=== PATIENT | female | born 1980 | race Asian ===

== ENCOUNTER 2018-09-10 09:38 | Emergency (ER) | payer MEDICAID, OTHER ==
--- NOTE | 2018-09-10 11:36 | ED Physician Documentation ---
PD HPI BACK PAIN - Stated complaint Stated Complaint: BACK PX - Chief complaint Chief Complaint: Back Pain - History obtained from History obtained from: Patient - History of Present Illness Timing - onset: How many days ago (3) Timing - duration: Weeks (2) Timing - details: Gradual onset, Still present Pain level max: 8 Pain level now: 8 Location: Lower Quality: Pain, Sharp. No: Similar to prior episodes Associated symptoms: No: Fever, Weakness, Numbness, Incontinent of urine, Hematuria, Incontinent of stool Improves with: Nothing Worsened by: Movement Contributing factors: No: Trauma Similar symptoms before: Has not had sx before Recently seen: Not recently seen - Additional information Additional information: 38-year-old female with no past medical or surgical history here with complaint of low back pain the past 2 weeks which had gotten worse the past 3 days. States is worse when she sits, walk, bend or turn. Patient denies any trauma, travel or recent injuries nor recent illness. Review of Systems Ten Systems: 10 systems reviewed and negative Constitutional: denies: Fever, Myalgias Cardiac: denies: Chest pain / pressure Respiratory: denies: Dyspnea GI: reports: Constipation. denies: Abdominal Pain, Nausea, Vomiting, Diarrhea : denies: Dysuria, Frequency, Hesitancy, Hematuria Musculoskeletal: reports: Back pain, Pain with weight bearing. denies: Neck pain, Extremity pain Neurologic: denies: Generalized weakness, Focal weakness, Numbness PD PAST MEDICAL HISTORY - Past Medical History Past Medical History: Yes Other Past Medical History: neurofibromatosis - Past Surgical History Past Surgical History: Yes - Present Medications Home Medications: Ambulatory Orders Medication Instructions Recorded Confirmed Cyclobenzaprine [Flexeril] 10 mg PO TID PRN #20 tablet 09/10/18 Ibuprofen [Motrin] 800 mg PO Q8H PRN #30 tablet 09/10/18 RX: Ibuprofen 09/10/18 - Allergies Allergies/Adverse Reactions: Allergies Allergy/AdvReac Type Severity Reaction Status Date / Time No Known Drug Allergies Allergy Verified 09/10/18 09:47 - Social History Does the pt smoke?: No Smoking Status: Never smoker Does the pt drink ETOH?: Yes Does the pt have substance abuse?: No - Immunizations Immunizations are current?: Yes - POLST Patient has POLST: No PD ED PE NORMAL - Vitals Vital signs reviewed: Yes - General General: Alert and oriented X 3, No acute distress, Well developed/nourished - HEENT HEENT: Moist mucous membranes - Neck Neck: Supple, no meningeal sign, No bony TTP - Cardiac Cardiac: RRR, No murmur - Respiratory Respiratory: No respiratory distress, Clear bilaterally - Abdomen Abdomen: Normal bowel sounds, Soft, Non tender, Non distended - Back Back: No CVA TTP, No spinal TTP - Derm Derm: Normal color, Warm and dry - Extremities Extremities: No deformity, No tenderness to palpate, Normal ROM s pain, No edema, No calf tenderness / cord, Other (Mild tenderness of her low back with leg lifting. Patient ambulatory with steady gait.) - Neuro Neuro: Alert and oriented X 3, No motor deficit, No sensory deficit, Normal speech - Psych Psych: Normal mood, Normal affect Results - Vitals Vitals: Vital Signs - 24 hr 09/10/18 09/10/18 09:44 13:28 Temperature 36.1 C L 36.9 C Heart Rate 88 81 Respiratory 16 18 Rate Blood Pressure 119/67 127/62 O2 Saturation 100 100 Oxygen O2 Source Room air - Labs Labs: Laboratory Tests 09/10/18 11:15 Urine Color YELLOW Urine Clarity CLEAR Urine pH 6.5 Ur Specific [place] 1.020 Urine Protein NEGATIVE Urine Glucose (UA) NEGATIVE Urine Ketones NEGATIVE Urine Occult Blood NEGATIVE Urine Nitrite NEGATIVE Urine Bilirubin NEGATIVE Urine Urobilinogen 0.2 (NORMAL) Ur Leukocyte Esterase TRACE H Urine RBC 0-5 Urine WBC 0-3 Ur Squamous Epith Cells FEW Squamous Urine Bacteria Rare Ur Microscopic Review INDICATED Urine Culture Comments INDICATED Urine HCG, Qual NEGATIVE PD MEDICAL DECISION MAKING - ED course Complexity details: reviewed results, re-evaluated patient, considered differential (, UTI, lumbar strain, Sciatica, constipation), d/w patient ED course: 1110 patient agreed to labs prior to x-ray. 1300 patient will give Toradol for pain. Inform of x-ray results. She did say that she has constipation and is working on it. Instructed to drink 6-8 glasses of water a day, hnpp-hgj-hqzrinz stool softener, lqxl-xqo-afnutws fiber tablets, and dxsi-mux-gngnfaj laxative. Patient will be discharged on Motrin and Flexeril. Departure - Departure Disposition: 01 Home, Self Care Clinical Impression: Back pain Qualifiers: Back pain location: low back pain Chronicity: acute Back pain laterality: unspecified Sciatica presence: with sciatica Sciatica laterality: sciatica laterality unspecified Qualified Code(s): M54.40 - Lumbago with sciatica, unspecified side Constipation Qualifiers: Constipation type: unspecified constipation type Qualified Code(s): K59.00 - Constipation, unspecified Condition: Stable Instructions: ED Constipation, ED Neck Back Pain General Prescriptions: Cyclobenzaprine [Flexeril] 10 mg PO TID PRN #20 tablet PRN Reason: Spasms Ibuprofen [Motrin] 800 mg PO Q8H PRN #30 tablet PRN Reason: PAIN &/OR FEVER Comments: Maintain safety while taking muscle relaxant. Make sure you eat food when you take the Motrin. Your x-ray also showed constipation or possibly fecal impaction. Make sure you drink 6-8 glasses of water a day and eat high-fiber foods. Pdry-dfu-mhvpoxy stool softener, jtqe-sjb-spzzidy fiber tablets, qnoa-yvc-sbozyhe laxative. Follow-up with your primary doctor this week. If wo rse return to the emergency room. Discharge Date/Time: 09/10/18 13:45
[2018-09-10 11:40] LABS: BILIRUBIN,URINE NEGATIVE (NEGATIVE); GLUCOSE, URINE (UA) NEGATIVE (NEGATIVE); KETONES,URINE (UA) NEGATIVE (NEGATIVE); LEUKOCYTE ESTERASE, URINE TRACE (NEGATIVE); NITRITE,URINE NEGATIVE (NEGATIVE); OCCULT BLOOD,URINE NEGATIVE (NEGATIVE); PH,URINE 6.5 PH (5.0-7.5); PROTEIN,URINE NEGATIVE (NEGATIVE); UROBILINOGEN,URINE 0.2 (NORMAL) E.U./dL (NORMAL)
[2018-09-10 11:42] LABS: CLARITY,URINE CLEAR (CLEAR); HCG UR QUAL NEGATIVE
[2018-09-10 11:55] LABS: BACTERIA,URINE Rare /HPF (None Seen); RBC,URINE 0-5 /HPF (0-5); SQUAMOUS EPITHELIAL CELL,UR FEW Squamous (<= Few)
--- NOTE | 2018-09-10 13:06 | XRAY Report ---
Reason: pain Procedure Date: 09/10/2018 Accession Number: [id number] / [id number] Procedure: XR - Lumbar Spine 2 View CPT Code: FULL RESULT: EXAM: LUMBOSACRAL SPINE RADIOGRAPHY EXAM DATE: 09/10/2018 12:38 PM. CLINICAL HISTORY: Pain. Low back pain, primarily L4-S1 region. No known trauma. COMPARISONS: None. TECHNIQUE: 2 views. FINDINGS: Alignment: Mild 8 degree convex right thoracolumbar scoliosis. Bones: Five cor-dfh-twufnem lumbar vertebral bodies are present. No fractures or bone lesions. Disks: Normal. Disk heights are maintained. Facets: No degenerative changes. Sacroiliac Joints: Unremarkable. Soft Tissues: IUD overlies central pelvis. Mottled density within central lower pelvis is likely related to large amount of stool within rectum, with 9.3 cm projected transverse diameter. No dilated large or small bowel loops. IMPRESSION: 1. Large volume of rectal stool, potential fecal impaction. 2. Mild convex right thoracolumbar scoliosis. 3. No evidence for significant lumbar spine degenerative changes or fracture. RADIA
[2018-09-10] MEDS ORDERED: KETOROLAC 60 MG/2 ML VIAL IM STA (13:12)
[2018-09-10 13:29] VITALS: BP 127/62
== END 2018-09-10 13:45 | disposition home or self-care (01) ==
LOC: ED 09:38
DX: M54.40 Lumbago with sciatica, unspecified side (principal); M41.85 Other forms of scoliosis, thoracolumbar region; K59.00 Constipation, unspecified; Z86.69 Personal history of other diseases of the nervous system and sense organs
CPT/HCPCS: 72100; 81001; 81003; 81025; 87086; 96372; 99283

== ENCOUNTER 2020-10-19 16:29 | Outpatient (CLI) | payer MEDICAID | END 2020-10-19 16:30 | disposition home or self-care (01) | LOC: COV 16:29 | PROVIDERS: ATTEND Family Medicine | DX: M79.10 Myalgia, unspecified site (principal); R53.83 Other fatigue; R68.83 Chills (without fever); R19.7 Diarrhea, unspecified; R09.81 Nasal congestion; R11.0 Nausea; Z20.822 Contact with and (suspected) exposure to COVID-19 ==

== ENCOUNTER 2021-06-19 09:42 | Emergency (ER) | payer MEDICAID ==
[2021-06-19 09:52] VITALS: BP 131/76
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
[2021-06-19] MEDS ORDERED: oxyCODONE 5 MG TABLET PO STA (10:05)
--- NOTE | 2021-06-19 10:30 | XRAY Report ---
PROCEDURE: Ankle 3 View RT INDICATIONS: Ankle injury TECHNIQUE: 3 views of the ankle were acquired. COMPARISON: None FINDINGS: Comminuted fracture of the distal fibular metadiaphysis with mild lateral and posterior displacement of the distal fracture fragment. Fracture of the distal tibia involving the involves the posterior malleolus and the lateral aspect an d extends into the anterior lateral aspect of the ankle mortise as well as the tibiofibular syndesmos is. IMPRESSION: Displaced and comminuted fracture of the distal tibia involving the posterior malleolus and the later al aspect of the tibial ankle mortise articular surface. Comminuted fracture of the distal fibular metadiaphysis. Orthopedic surgical referral recommended. Reviewed by: Oscar Manriquez MD on 06/19/2021 10:29 AM PDT Approved by: Oscar Manriquez MD on 06/19/2021 10:29 AM PDT Station ID: [id number]
== END 2021-06-19 11:26 | disposition home or self-care (01) ==
LOC: ED 09:42
DX: S82.451A Displaced comminuted fracture of shaft of right fibula, initial encounter for closed fracture (principal); S82.251A Displaced comminuted fracture of shaft of right tibia, initial encounter for closed fracture; X50.1XXA Overexertion from prolonged static or awkward postures, initial encounter; Y93.51 Activity, roller skating (inline) and skateboarding
CPT/HCPCS: 29505; 73610; 99283; A9270